=== PATIENT | male | born 1990 | race Caucasian/White ===

== ENCOUNTER 2021-07-18 17:47 | Emergency (ER) | payer MEDICAID ==
[2021-07-18 18:31] VITALS: BP 131/91; PULSE 79
[2021-07-18] MEDS ORDERED: Bacitracin Oint 1 GM U/D Packet TOP ONE (18:42)
[2021-07-18] MEDS ORDERED: Ondansetron 4 MG Tab.DIS PO ONE (18:45)
--- NOTE | 2021-07-18 18:57 | EDM.PDOC ---
ED HPI GENERAL MEDICAL PROBLEM - General Chief Complaint: Gastrointestinal Problem Stated Complaint: VOMITING Time Seen by Provider: 07/18/21 18:41 Source of Information: Reports: Patient History Limitations: Reports: No Limitations - History of Present Illness INITIAL COMMENTS - FREE TEXT/NARRATIVE: Sonia is a 31-year-old male presenting to the ED for evaluation of intractable vomi ting for the last 4 days. Patient states he was in his usual state of health when he started to not feel well. He has been vomiting at least 2 times a day since the onset of his symptoms. He has body aches, abdominal pain, nausea and vomiting. He denies headache, sore throat, shortness of breath or cough, chest pain or back pain, urinary symptoms, constipation or diarrhea. He is not vaccinated for COVID-19. Abdomen Pain Score (Numeric/FACES): 2 - Related Data Allergies Allergy/AdvReac Type Severity Reaction Status Date / Time Penicillins Allergy Hives Verified 11/13/15 12:06 Home Meds: Home Meds Albuterol [Proair HFA] 2 puff INH Q4H PRN 11/09/15 [History] Past Medical History HEENT History: Reports: Impaired Vision Respiratory History: Reports: Asthma - Past Surgical History HEENT Surgical History: Reports: Tonsillectomy Social & Family History - Tobacco Use Tobacco Use Status *Q: Current Every Day Tobacco User Years of Tobacco use: 12 Packs/Tins Daily: 0.5 - Caffeine Use Caffeine Use: Reports: Coffee, Soda - Recreational Drug Use Recreational Drug Use: No ED ROS GENERAL - Review of Systems Review Of Systems: See Below Constitutional: Reports: No Symptoms HEENT: Reports: No Symptoms Respiratory: Reports: No Symptoms Cardiovascular: Reports: No Symptoms Endocrine: Reports: No Symptoms GI/Abdominal: Reports: Abdominal Pain, Nausea, Vomiting. Denies: Constipation, Diarrhea, Decreased Appetite : Reports: No Symptoms Musculoskeletal: Reports: Muscle Pain Skin: Reports: No Symptoms Neurological: Reports: No Symptoms Psychiatric: Reports: No Symptoms Hematologic/Lymphatic: Reports: No Symptoms Immunologic: Reports: No Symptoms ED EXAM, GI/ABD - Physical Exam Exam: See Below Exam Limited By: No Limitations General Appearance: Alert, Anxious, Mild Distress, Obese Eyes: Bilateral: EOMI Throat/Mouth: Normal Inspection, Normal Oropharynx, Normal Voice, No Airway Compromise Head: Normocephalic Neck: Normal Inspection, Supple, Non-Tender, Full Range of Motion. No: Lymphadenopathy (R), Lymphadenopathy (L) Respiratory/Chest: No Respiratory Distress, Lungs Clear, Normal Breath Sounds Cardiovascular: Normal Peripheral Pulses, Regular Rate, Rhythm, No Murmur GI/Abdominal Exam: Normal Bowel Sounds, Soft, Non-Tender Back Exam: Normal Inspection Extremities: Normal Inspection Neurological: Alert, Oriented, Normal Cognition, No Motor/Sensory Deficits Psychiatric: Normal Affect, Normal Mood Skin Exam: Warm, Dry, Intact, Normal Color, No Rash Course - Vital Signs Last Recorded V/S: Last Vital Signs Temp 35.9 C L 07/18/21 18:30 Pulse 79 07/18/21 18:30 Resp 16 07/18/21 18:30 BP 131/91 H 07/18/21 18:30 Pulse Ox 97 07/18/21 18:30 - Orders/Labs/Meds Labs: Laboratory Tests 07/18/21 07/18/21 07/18/21 Range/Units 18:51 18:58 18:58 WBC 9.3 (4.5-11.0) K/uL RBC 5.66 (4.30-5.90) M/uL Hgb 16.2 H (12.0-15.0) g/dL Hct 49.1 (40.0-54.0) % MCV 87 (80-98) fL MCH 29 (27-31) pg MCHC 33 (32-36) % Plt Count 312 (150-400) K/uL Neut % (Auto) 53.7 (36-66) % Lymph % (Auto) 31.4 (24-44) % Floyd % (Auto) 8.3 H (2-6) % Eos % (Auto) 5.8 H (2-4) % Baso % (Auto) 0.8 (0-1) % Sodium 138 L (140-148) mmol/L Potassium 4.7 (3.6-5.2) mmol/L Chloride 100 (100-108) mmol/L Carbon Dioxide 28 (21-32) mmol/L Anion Gap 14.7 H (5.0-14.0) mmol/L BUN 12 (7-18) mg/dL Creatinine 1.1 (0.8-1.3) mg/dL Est Cr Clr Drug Dosing 104.58 mL/min Estimated GFR (MDRD) > 60 (>60) Glucose 96 (74-106) mg/dL Calcium 9.0 (8.5-10.1) mg/dL Total Bilirubin 0.2 (0.2-1.0) mg/dL AST 43 H (15-37) U/L ALT 129 H (12-78) U/L Alkaline Phosphatase 126 H (46-116) U/L Total Protein 7.4 (6.4-8.2) g/dL Albumin 3.9 (3.4-5.0) g/dL Globulin 3.5 (2.3-3.5) g/dL Albumin/Globulin Ratio 1.1 L (1.2-2.2) Lipase 80 (73-393) U/L SARS CoV-2 RNA Rapid JUAN MIGUEL Negative Meds: Medications Discontinued Medications Generic Name Dose Route Start Last Admin Trade Name Freq PRN Reason Stop Dose Admin Bacitracin 1 dose 07/18/21 18:42 Bacitracin Oint 1 Gm U/D Packet TOP 07/18/21 18:43 ONETIME ONE Lidocaine HCl 5 ml 07/18/21 18:42 Lidocaine 1% 5 Ml Sdv INJECT 07/18/21 18:43 ONETIME ONE Ondansetron HCl 4 mg 07/18/21 18:45 07/18/21 18:50 Ondansetron 4 Mg Tab.Dis PO 07/18/21 18:46 4 mg ONETIME ONE Administration - Re-Assessments/Exams Free Text/Narrative Re-Assessment/Exam: 07/18/21 19:47 the patient was given Zofran 4 mg ODT and has had improvement in his nausea. Labs have returned showing a normal CBC, comprehensive metabolic profile except for a creatinine 1.1, AST of 43, ALT of 129, and alkaline phosphatase of 126. Patient's lipase is normal. Patient is Covid negative. This appears to be an acute gastro enteritis. We will put the patient on Zofran 4 mg every 8 hours as needed for nausea. This was dispensed through the [facility] machine. Departure - Departure Time of Disposition: 19:48 Disposition: Home, Self-Care 01 Clinical Impression: Viral gastroenteritis due to [place]-like agent - Discharge Information Instructions: Viral Gastroenteritis, Adult, [id number] Referrals: PCP,None [Primary Care Provider] - Forms: ED Department Discharge Care Plan Goals: Your work-up is shown that she likely have a viral infection infecting the stomach causing the repeated nausea and vomiting. We will put you on Zofran to control the nausea. You may take 1 tablet every 8 hours as needed for nausea. I would follow the BRAT diet which is bananas, rice, applesauce, and toast until you are no longer nauseous and then slowly advance the diet from there. These are foods that are easier to digest and less likely to cause nausea. Sepsis Event Note (ED) - Evaluation Sepsis Screening Result: No Definite Risk - Focused Exam Vital Signs: Vital Signs Temp Pulse Resp BP Pulse Ox 07/18/21 18:30 35.9 C L 79 16 131/91 H 97 - Problem List & Annotations (1) Viral gastroenteritis due to [place]-like agent Status: Acute Priority: Medium Current Visit: Yes - Problem List Review Problem List Initiated/Reviewed/Updated: Yes
== END 2021-07-18 20:00 | disposition home or self-care (01) ==
LOC: JP.ED 17:47
DX: A08.4 Viral intestinal infection, unspecified (principal); Z88.0 Allergy status to penicillin; Z72.0 Tobacco use; Z20.822 Contact with and (suspected) exposure to COVID-19
CPT/HCPCS: 36415; 80053; 83690; 85025; 87635; 99284; A9270; U0002